=== PATIENT | female | born 1995 | race Two or more races ===

== ENCOUNTER 2025-06-05 00:40 | Emergency (ER) | payer MEDICAID, OTHER ==
[~2025-06-05] VITALS: Ht 162.6 cm; Wt 89.0 kg
[2025-06-05 03:11] VITALS: BP 110/67; PULSE 109; RESP 20; O2SAT 95
--- NOTE | 2025-06-05 03:11 | ED.PDOC ---
History of Present Illness HPI Comments 29 year old female presents to ER with complaints of flu-like symptoms x 1 days. Patient reports she has been experiencing body aches, frontal headache and two episodes of nausea/vomiting x1 day. She rates her current pain an 8/10. Notes she currently is 6 months , A0 and has been following up with her OBGYN as directed, denying any known complications with current . Patient presents to ER ambulatory on arrival, afebrile, in no distress. 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 History Family History Family History: Unknown Social History Smoker: Non-Smoker Alcohol: Denies ETOH Use Drugs: Denies Drug Use Lives In: Home Constitutional: See HPI EENTM: No Symptoms Reported Respiratory: No Symptoms Reported Cardiovascular: No Symptoms Reported Gastrointestinal: See HPI Genitourinary: See HPI Neurological: No Symptoms Reported Musculoskeletal: No Symptoms Reported Integumentary: No Symptoms Reported Allergic/Immunocompromised: others (Denies) Hematologic/Lymphatic: No Symptoms Reported Endocrine: No Symptoms Reported Psychiatric: No symptoms Reported Physical Exam General Appearance: No Apparent Distress, Obese HEENT: Normal ENT Inspection, PERRL/EOMI, Pharynx Normal, TMs Normal Neck: Full Range of Motion, Non-Tender, Normal Respiratory: Chest Non-Tender, Lungs Clear, No Accessory Muscle Use, No Respiratory Distress, Normal Breath Sounds Cardiovascular: No Murmur, No Gallop, Regular Rate/Rhythm Breast Exam: Deferred Gastrointestinal: Non Tender (TTP to abdomen/pelvic region noted), No Pulsatile Mass, Soft Genitalia: Deferred Pelvic: Deferred Rectal: Deferred Extremities: Normal capillary refill, Normal range of motion Musculoskeletal : Extremity Location: Back (No TTP to bilateral flanks or CVA tenderness noted bilaterally) Neurologic: Alert, preschool aide II-XII nml as Tested, No Motor Deficits, Normal Affect, Normal Mood, No Sensory Deficits Cerebellar Function: Normal Reflexes: Normal Skin: Dry, Normal Color, Warm Lymphatic: No Adenopathy Was a procedure done? Was a procedure done?: No Sedation Sedation?: No Fever Differential Dx Differential Diagnosis: Sepsis, UTI, Other (COVID-19, Influenza, placenta previa) X-Ray, Labs, Meds, VS Vital Signs Date Time Temp Pulse Resp B/P (MAP) Pulse Ox O2 Delivery O2 Flow Rate FiO2 06/05/25 03:25 98.4 06/05/25 03:13 Room Air* 0 21 06/05/25 03:11 98.4 109 20 110/67 (81) 95 98.4 06/05/25 00:40 98.5 116 18 116/63 96 98.5 Lab Test 06/05/25 03:55 06/05/25 03:30 Range/Units Influenza Type A Antigen Negative Negative Influenza Type B Antigen Negative Negative SARS-CoV-2 Antigen (Rapid) Negative NEGATIVE Urine Color Yellow Yellow Urine Clarity Turbid H Clear Urine pH 6.0 5.0-9.0 Urine Specific Gooding 1.022 1.001-1.035 Urine Protein 1+ H Negative Urine Ketones 3+ H Negative Urine Blood Negative Negative /uL Urine Nitrite Negative Negative Urine Bilirubin Negative Negative Urine Urobilinogen 2 H Negative mg/dL Urine Leukocyte Esterase 1+ Negative /uL Urine RBC 9 0 - 4 /hpf Urine Microscopic WBC 6 H 0-5 /HPF Urine Squamous Epithelial Cells Mod <5 /hpf Urine Bacteria Few H None Seen /hpf Urine Hyaline Casts Few 0 - 2 /lpf Urine Mucus Few None Seen Urine Glucose Normal Normal mg/dL Current Medications Medications (Trade) Dose Ordered Sig/Estrellita Route Start Time Stop Time Status Last Admin Acetaminophen (Tylenol Tablet) 650 mg ONCE ONCE PO 06/05/25 03:15 06/05/25 03:16 DC 06/05/25 03:25 Urinalysis reviewed-urine leukocyte esterase 1+, urine blood negative, urine nitrites negative, urine ketones 3+, urine protein 1+ Swab results reviewed-negative Tylenol 650 mg p.o. ordered Patient had improvement in symptoms and denied any abdominal/pelvic pain during ER visit/prior to discharge Diet education discussed Advised to follow up with PCP and OBGYN in 1-2 days Patient verbalized understanding and agreeable with current plan of care Advised to return to ER immediately if symptoms worse Time of 1ST Reevaluation: 03:18 Reevaluation 1ST: N/A Patient Education/Counseling: Diagnosis, Treatment, Prognosis, Need For Follow Up Family Education/Counseling: No Family Present SEPSIS Sepsis Screen Date sepsis recognized/suspect: Jun 05, 2025 Time Sepsis recognized/suspect: 0040 Recent Procedure: No On Antibiotic Therapy: No Respiratory Rate >20: No Heart Rate >90: Yes Temp<36 C (96.8 F) or >38.3 C: No SBP <90 or MAP <65 mmHG: No New Acute Mental Status Change: No Is the patient on CPAP, BIPAP,: No Vital Signs Date Time Temp Pulse Resp B/P (MAP) Pulse Ox O2 Delivery O2 Flow Rate FiO2 06/05/25 03:25 98.4 06/05/25 03:13 Room Air* 0 21 06/05/25 03:11 98.4 109 20 110/67 (81) 95 98.4 06/05/25 00:40 98.5 116 18 116/63 96 98.5 Medications Medications Dose Ordered Sig/Estrellita Route Start Time Stop Time Status Last Admin Dose Admin Acetaminophen 650 mg ONCE ONCE PO 06/05/25 03:15 06/05/25 03:16 DC 06/05/25 03:25 Departure 1 Departure Time of Disposition: 04:29 Impression: Primary Impression: UTI (urinary tract infection) Qualified Codes: N30.00 - Acute cystitis without hematuria Additional Impression: Second trimester Disposition: 01 HOME / SELF CARE / HOMELESS Condition: Stable e-Prescriptions Cephalexin Monohydrate (Cephalexin) 500 Mg Cap 500 MG PO QID for 7 Days, #28 CAP 0 Refills Prov: NELLA JUDD 06/05/25 Acetaminophen (Acetaminophen) 500 Mg Tab 500 MG PO Q4HPRN, #30 TAB 0 Refills Prov: NELLA JUDD 06/05/25 Discharged With: Self Critical Care Note Critical Care Time?: No Stability Stability form required: No Heart Score Heart Score: Heart Score Response (Comments) Value History N/A 0 EKG N/A 0 Age N/A 0 Risk Factors N/A 0 Troponin N/A 0 Total 0 NELLA JUDD Jun 05, 2025 03:11
[2025-06-05 03:25] VITALS: TEMP 98.4
[2025-06-05] MEDS: ACETAMINOPHEN 325 MG TAB PO ONE (03:25)
[2025-06-05 04:24] LABS: Urine Protein, UAD 1+ (Negative)
[2025-06-05] MEDS ORDERED: CEPH500C PO (04:33)
[2025-06-05] MEDS ORDERED: ACET500T58 PO (04:33)
[2025-06-05 04:54] LABS: COVID19 ANTIGEN SOFIA FIA NEGATIVE (NEGATIVE)
== END 2025-06-05 05:05 | disposition home or self-care (01) ==
LOC: ER 02:11
DX: O23.12 Infections of bladder in pregnancy, second trimester (principal); N39.0 Urinary tract infection, site not specified; Z3A.00 Weeks of gestation of pregnancy not specified; Z20.822 Contact with and (suspected) exposure to COVID-19
CPT/HCPCS: 36415; 81001; 87426; 87804